=== PATIENT | male | born 1940 | race African-American/Black ===

== ENCOUNTER 2017-08-21 19:42 | Emergency (ER) | payer BC ==
[~2017-08-21] VITALS: Ht 180.3 cm; Wt 68.0 kg
[2017-08-21 19:45] VITALS: BP 121/73
[2017-08-21] MEDS ORDERED: BISACODYL10 M1 RC (19:53)
[2017-08-21] MEDS ORDERED: MILK OF MA400 MG/51 ORAL (19:53)
[2017-08-21] MEDS ORDERED: AMLODIPINE BESY10 MG ORAL (19:53)
[2017-08-21] MEDS ORDERED: SENNA S TABLET1 EAC1 PO (19:53)
[2017-08-21] MEDS ORDERED: GLUCOPHAGE500 MG GT (19:53)
[2017-08-21] MEDS ORDERED: FLEET ENEMA133 ML RECTAL (19:53)
[2017-08-21] MEDS ORDERED: FOLIC ACID1 MG GT (19:53)
[2017-08-21] MEDS ORDERED: ACETAMINOPHEN325 M1 GT (19:53)
[2017-08-21] MEDS ORDERED: NORVASC10 MG ORAL (19:53)
[2017-08-21] MEDS ORDERED: DOCUSATE SODIU100 MG GT (19:53)
[2017-08-21] MEDS ORDERED: ATORVASTATIN CA40 MG GT (19:53)
[2017-08-21] MEDS ORDERED: Lidocaine 2% 20mg/ml/EPI 0.01mg/ml 20ml INJ ONE (20:00)
[2017-08-21 21:13] VITALS: BP 120/90
[2017-08-21 22:00] VITALS: BP 162/106
--- NOTE | 2017-08-21 22:17 | Emergency Room Report ---
History of Present Illness General Chief Complaint: Multiple Trauma/Fall Source: Medical Record, EMS Present Illness HPI Patient is a 77-year-old male who presented after a facial injury after fall from his wheelchair. The patient had prior history of dementia. Patient normally oriented times one. The patient was brought in by EMS. He was noted to have a laceration to the left eyebrow. Patient did not have any loss of consciousness. Fall witnessed by staff Allergies: Coded Allergies: PENICILLINS (Verified Allergy, Unknown, 08/21/17) Patient History Past Medical History: see triage record Reviewed Nursing Documentation: PMH: Agreed, PSxH: Agreed Nursing Documentation-PMH Hx Hypertension: Yes - occlusion and stenosis of bilateral carotid arteries Hx Diabetes: Yes Hx Cerebrovascular Accident: Yes - hemiplegia, hemiparesis (right dominant side ) Review of Systems All Other Systems: negative except mentioned in HPI Physical Exam Vital Signs Date Time Temp Pulse Resp B/P (MAP) Pulse Ox O2 Delivery O2 Flow Rate FiO2 08/21/17 19:36 97.5 58 18 121/73 98 Room Air 97.5 General Appearance: Chronically Ill Head: atraumatic ENT: hearing grossly normal, normal voice Neck: full range of motion, supple, limited range of motion - kyphosis Respiratory: lungs clear, no respiratory distress, speaking full sentences Cardiovascular #1: regular rate, rhythm, no edema Musculoskeletal: no calf tenderness Neurologic: normal gait, motor weakness Psychiatric: mood/affect normal Skin: no rash, laceration - left eyebrow 3cm Procedures Laceration/Wound Repair Laceration/Wound Repair : Wound Location: face Wound's Depth, Shape: superficial Wound Length (cm): 3 Wound Explored: clean Irrigated w/ Saline (ccs): 20 Betadine Prep?: Yes Anesthesia: Lidocaine w/ Epi Volume Anesthetic (ccs): 4 Wound Debrided: minimal Wound Repaired With: sutures Suture Size/Type: 6:0 Number of Sutures: 6 Layer Closure?: No Patient Tolerated: Well Complications: None Medical Decision Making Diagnostic Impression: Primary Impression: Fall Additional Impression: Laceration of face ER Course Patient presented for fall. Differential diagnosis included was not limited to neck fracture, CVA, close head injury, syncopal episode, basilar ischemia. CT the head read by radiology showed encephalomalacia without evident intracranial hemorrhage. Cervical spine CT showed degenerative changes without fracture. The patient's wound was irrigated and closed with absorbable sutures. The patient was discharged back to his long term via BLS ambulance Last Vital Signs Date Time Temp Pulse Resp B/P (MAP) Pulse Ox O2 Delivery O2 Flow Rate FiO2 08/21/17 21:13 97.5 107 23 120/90 97 Room Air 97.5 Status: improved Disposition: XFER [facility] Condition: Stable Patient Instructions: Sutured Wound Care Alcides Vigil Aug 21, 2017 22:16
[2017-08-21] MEDS ORDERED: Bacitracin Oint UD TOPIC ONE (22:30)
[2017-08-21 23:13] VITALS: BP 141/104
--- NOTE | 2017-08-22 08:07 | Diagnostic Imaging Report ---
Indication: Pain post trauma Technique: CT scan of the cervical spine performed without intravenous contrast material. Axial, coronal, and sagittal images were generated.. Dose: Total Dose Length Product - DLP [address] Dose Index - CTDIvol(s) 9.18 mGy. Automated exposure control was utilized for dose reduction. Findings: There is curvature of the cervical spine convex to the right. Reversal of the normal lordosis is noted. Disc space narrowing is noted from C3 through C7 with osteophyte formation. Uncovertebral joint spurring is also present at multiple levels with foraminal narrowing, greatest at C4-5 on the right.. There is no fracture. No evidence of bone destruction. Prevertebral soft tissues are normal. There is narrowing of facet joints the canal is narrowed in AP dimension at C4-5. Central disc osteophyte complex is noted at C3-4 with narrowing of the canal at this level as well. Impression: Degenerative spondylosis. Central osteophyte complex at C3-4 with narrowing of the canal. Narrowing of the canal at C4-5, probably congenital. Uncovertebral joint spurring with foraminal narrowing, greatest at C4-5 on the right. No evidence of acute fracture. Reversal of the normal lordosis. The above report is concordant with preliminary reading by [facility] with additional findings. The CT scanner at [facility] is accredited by the [employer] and the scans are performed using protocols designed to limit radiation exposure to as low as reasonably achievable to attain images of sufficient resolution adequate for diagnostic evaluation.
--- NOTE | 2017-08-22 08:10 | Diagnostic Imaging Report ---
Indication: Headache posthead trauma Technique: Continuous helical CT scanning of the head was performed without intravenous contrast material. Axial and coronal 5 mm sections were generated. Dose: Total Dose Length Product - DLP [address] Dose Index - CTDIvol(s) 70.38 x 2 mGy. Automated exposure control was utilized for dose reduction. Comparison: None Findings: There is prominence of cortical sulci and cerebellar folia. Focal encephalomalacia is present in the left temporal/parietal lobe. Periventricular low-density is present. There are also focal areas of low density in the left cerebellum. There is no shift of midline structures. No abnormal extra-axial fluid collections are noted. There is no evidence of intracerebral bleeding. No other abnormal high or low density areas are noted within the brain. There is emphysema in the left eyelid and lateral left orbit. Impression: Atrophy. Chronic small vessel white matter ischemic change. 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 Left orbital and periorbital emphysema. The above report is concordant with preliminary reading by [facility] . The CT scanner at [facility] is accredited by the [employer] and the scans are performed using protocols designed to limit radiation exposure to as low as reasonably achievable to attain images of sufficient resolution adequate for diagnostic evaluation.
== END 2017-08-21 23:13 ==
LOC: EDBD 19:42 → EMR 20:15
DX: S01.112A Laceration without foreign body of left eyelid and periocular area, initial encounter (principal); T79.7XXA Traumatic subcutaneous emphysema, initial encounter; W05.0XXA Fall from non-moving wheelchair, initial encounter; I10 Essential (primary) hypertension; E11.9 Type 2 diabetes mellitus without complications; I69.351 Hemiplegia and hemiparesis following cerebral infarction affecting right dominant side; Z88.0 Allergy status to penicillin; M47.812 Spondylosis without myelopathy or radiculopathy, cervical region; G93.89 Other specified disorders of brain
CPT/HCPCS: 70450; 72125; 99284

== ENCOUNTER 2017-09-16 16:06 | Emergency (ER) | payer BC ==
[~2017-09-16] VITALS: Ht 162.6 cm; Wt 49.9 kg
[~2017-09-16 16:06] MED LIST: ACETAMINOPHEN325 M1 GT; AMLODIPINE BESY10 MG ORAL; ATORVASTATIN CA40 MG GT; BISACODYL10 M1 RC; DOCUSATE SODIU100 MG GT; FLEET ENEMA133 ML RECTAL; FOLIC ACID1 MG GT; GLUCOPHAGE500 MG GT; MILK OF MA400 MG/51 ORAL; NORVASC10 MG ORAL; SENNA S TABLET1 EAC1 PO
[2017-09-16 17:05] VITALS: BP 116/78
--- NOTE | 2017-09-16 17:55 | Emergency Room Report ---
History of Present Illness General Chief Complaint: Malfunctioning Gastric Tube Source: Medical Record, EMS Present Illness HPI 77-year-old male brought in by EMS from SNF for leaking G-tube Patient not providing additional history of present illness, clear underlying dementia shelter notes state [address] Patient had a previous visit here however there is no notes regarding G-tube placement HPI otherwise limited Allergies: Coded Allergies: PENICILLINS (Verified Allergy, Unknown, 08/21/17) Patient History Past Medical History: unable to obtain, dementia Past Surgical History: unable to obtain, other - G-tube Pertinent Family History: unable to obtain Social History: Denies: smoking, alcohol use, drug use Immunizations: UTD Reviewed Nursing Documentation: PMH: Agreed, PSxH: Agreed Nursing Documentation-PMH Hx Hypertension: Yes - occlusion and stenosis of bilateral carotid arteries Hx Diabetes: Yes Hx Cerebrovascular Accident: Yes - rt hemiplegia,rt hemiperesis alzheimers Review of Systems All Other Systems: limited - Dementia Physical Exam Vital Signs Date Time Temp Pulse Resp B/P (MAP) Pulse Ox O2 Delivery O2 Flow Rate FiO2 09/16/17 15:59 97.1 96 16 116/78 98 Room Air 97.2 Sp02 EP Interpretation: reviewed, normal General Appearance: normal inspection, well appearing, no apparent distress, alert, non-toxic Head: normocephalic, atraumatic Eyes: bilateral eye PERRL, bilateral eye EOMI ENT: normal ENT inspection, hearing grossly normal, normal pharynx, no angioedema, normal voice, TMs + canals normal, uvula midline, moist mucus membranes Neck: normal inspection, full range of motion, supple, thyroid normal, no meningismus, no bony tend Respiratory: normal inspection, lungs clear, normal breath sounds, no rhonchi, no respiratory distress, no retraction, no accessory muscle use, no wheezing, speaking full sentences Cardiovascular #1: regular rate, rhythm, no edema, no JVD, normal capillary refill Gastrointestinal: normal inspection, normal bowel sounds, non tender, soft, no mass, no peritonitis, non-distended, no guarding, no hernia, no pulsatile mass, other - There is a cathether placed in Gtube stoma. Looks like a stopcock was jammed into a broken area on the device. There is no leak from stoma site. No sign of infection Genitourinary: no CVA tenderness Musculoskeletal: normal inspection, back normal, normal range of motion, no calf tenderness, pelvis stable, Kashmir's Sign negative Neurologic: normal inspection, alert, responsive, batch dumper III-XII nml as tested, motor strength/tone normal, cerebellar normal, normal gait, speech normal Psychiatric: normal inspection, judgement/insight normal, mood/affect normal, no suicidal/homicidal ideation, no delusions Skin: normal inspection, normal color, no rash Lymphatic: normal inspection, no adenopathy Medical Decision Making Diagnostic Impression: Primary Impression: Malfunction of gastrostomy tube ER Course 77-year-old male with leaking G-tube G-tube was replaced in the ER Verified on KUB No other issues in the ER DC back to SNF Other X-Ray Diagnostic Results Other X-Ray Diagnostic Results : X-Ray ordered: KUB # of Views/Limited Vs Complete: 1 View Indication: Other - GTUBE replacement Interpretation: no soft tissue swelling, other - Gtube in stomach Electronically Signed by: Dr Samantha Garduno MD Last Vital Signs Date Time Temp Pulse Resp B/P (MAP) Pulse Ox O2 Delivery O2 Flow Rate FiO2 09/16/17 17:05 97.2 16 116/78 98 Room Air 97.2 09/16/17 15:59 96 Status: improved Disposition: XFER SNF Condition: Improved Referrals: ROBB REBOLLEDO (PCP) Patient Instructions: Gastrostomy Tube Home Guide, Adult Additional Instructions: - GTUBE replaced in SAMANTHA KENT M.D. Sep 16, 2017 17:55
[2017-09-16 19:31] VITALS: BP 142/80
[2017-09-16 20:05] VITALS: BP 142/80
--- NOTE | 2017-09-17 08:39 | Diagnostic Imaging Report ---
Indication: Status post gastrostomy replacement Technique: Supine view of the abdomen after injection of water-soluble contrast into gastrostomy Comparison: none Findings: Contrast opacifies the stomach and proximal jejunum. No contrast extravasation is demonstrated. The bowel gas pattern is unremarkable. Impression: Satisfactory position of gastrostomy tube This agrees with the preliminary interpretation provided overnight by [facility] teleradiology service.
== END 2017-09-16 20:05 ==
LOC: EDBD 16:06 → EMR 17:10
DX: K94.23 Gastrostomy malfunction (principal); E11.9 Type 2 diabetes mellitus without complications; I10 Essential (primary) hypertension; I69.351 Hemiplegia and hemiparesis following cerebral infarction affecting right dominant side; Z88.0 Allergy status to penicillin
CPT/HCPCS: 43760; 74018; 99284